=== PATIENT | male | born 1940 | race Caucasian/White ===

== ENCOUNTER 2016-07-07 10:55 | Inpatient (IN) | payer OTHER, MEDICARE ==
[2016-07-07] VITALS (7 sets, daily range): BP systolic 93–104; BP diastolic 46–63; PULSE 72–99; RESP 16–22; O2SAT 95–98
[~2016-07-07] VITALS: Ht 170.2 cm; Wt 78.1 kg
--- NOTE | 2016-07-07 11:14 | ED.REPORT ---
HPI-Dyspnea / Wheezing Date of Service Jul 07, 2016 ED Provider: Eric Roque MD A pleasant 76 year old male with a history of HTN, asthma, and GERD presents to the ER referred from his PCP accompanied by his daughter complaining of lower extremity pain with ambulation for the last two months. He also reports subjective fever yesterday, and persistent dizziness, fatigue, dyspnea with minimal exertion, voice change, and 20lb weight loss over the last year. Patient denies chest pain, lower extremity swelling, and history of AL, CHF, blood clots, or pulmonary disease. He has been on antibiotics for the past two months, currently on Augmentin. Nursing Notes Stated Complaint: RESPIRTORY PROBLEMS-SENT BY DOCTOR Chief Complaint: Respiratory Distress Nursing Notes Reviewed: Yes Allergies: Coded Allergies: No Known Allergies (Unverified , 07/07/16) Scheduled Amoxicillin/Clav K 875-125 mg (Augmentin 875-125 mg) 1 Each Tablet 1 TABLET PO BID x 10 days Aspirin (Aspirin) 81 Mg Tablet 81 MG PO DAILY Budesonide/Formoterol 160-4.5 mcg Inh (Symbicort 160-4.5 mcg Inh) 120 Puff Inhaler 2 PUFF INHALATION BID Fluticasone Propionate (Fluticasone Propionate Nasal) 16 Gm [place].susp 2 SPRAY NS DAILY Lisinopril (Lisinopril) 20 Mg Tablet 20 MG PO HS Multivitamin (Once Daily) 1 Each Tablet 1 EACH PO DAILY Terazosin (Terazosin) 2 Mg Capsule 2 MG PO HS Scheduled PRN Benzonatate (Benzonatate) 200 Mg Capsule 200 MG PO q8 hours PRN PRN For Cough Guaifenesin/Codeine Phosphate (Guaifen-Codeine 100-10 mg/5 ml) 120 Ml Liquid 1- 2 TSP PO HS PRN PRN For Cough General Time Seen by MD: 11:09 Chief Complaint Other (Lower Extremity Pain) Hx Obtained From: Patient, Daughter Arrived By: Walk-in Sudden in Onset?: No Onset Occurred: More than a week ago... (2 months) Symptom Duration: Since onset Associated with: Reports: Diaphoresis, Fever, Denies: Chest pain Pertinent Negative: Pt denies other symptoms Recent Healthcare: Recent doctor visit Similar Sx Previous: No Past Medical History Past Medical History Reports: Asthma, GERD, Hypertension Smoking History Former Smoker Social History Other Social History: Good social support Ambulatory Status Independent Review of Systems Constitutional: Reports: Fatigue, Fever, Malaise, Denies: Chills Ears / Nose / Throat: Reports: Voice change Respiratory: Reports: Dyspnea on exertion, Shortness of breath, Denies: Non-productive cough Cardiovascular: Denies: Chest pain Musculoskeletal: Reports: Extremity pain (Lower, bilateral), Denies: Extremity swelling Skin: Reports Diaphoresis Complete sys rev & neg: except as marked. GI: Denies: Abdominal pain, Nausea, Vomiting Endocrine: Reports: Weight loss (20lbs over the last year) Neurologic: Reports: Dizziness Physical Exam Initial Vital Signs Vital Signs (First) Date Time Temp Pulse Resp B/P Pulse Ox O2 Delivery O2 Flow Rate FiO2 07/07/16 10:58 35.0 99 18 95/54 95 07/07/16 12:36 Room Air Initial VS: Reviewed Head / Eyes: Atraumatic, Normocephalic Abdomen / GI: Soft, Non-tender, No guarding, No rebound, No distention Extremities: Vascular intact, Neuro intact, No swelling, No tenderness Skin: Warm, Dry, No cyanosis Neurologic: Alert, Oriented, Nonfocal General/Constitutional: Awake, Alert, Well developed, Well nourished Neck: Atraumatic, Supple, No meningismus, Full range of motion, No swelling, Non-tender, No masses Respiratory / Chest: Breath sounds NL, Breath sounds = bilat, No respiratory distress, No rales, No rhonchi, No wheezing, No retractions, No stridor Hoarse voice. Cardiovascular: Heart rate NL, Regular rhythm, Heart sounds NL, Peripheral circulation NL Lower Extremity / Pelvis / MS: Inspection NL, Full range of motion, No swelling , Non-tender, No erythema, No deformity, Neurologic intact, Vascular intact, No edema Interpretation & Diagnostics Lab Results Interpretation Result Diagram: 07/07/16 1128 07/07/16 1128 Test 07/07/16 11:28 White Blood Count 14.1th/mm3 (3.8-10.1) Red Blood Count 3.56mil/mm3 (4.40-5.80) Hemoglobin 10.5g/dL (13.8-17.2) Hematocrit 31.9% (41.0-50.0) Mean Corpuscular Volume 89.6fL (81-100) Mean Corpuscular Hemoglobin 29.5pg (27.0-35.0) Mean Corpuscular Hemoglobin Concent 32.9% (32.0-37.0) Red Cell Distribution Width 13.9% (12.3-15.4) Platelet Count 386bil/L (150-400) Neutrophils (%) (Auto) 82.3% (40-74) Lymphocytes (%) (Auto) 10.7% (14-46) Monocytes (%) (Auto) 6.1% (4-12) Eosinophils (%) (Auto) 0.3% (0-5) Basophils (%) (Auto) 0.3% (0-3) Prothrombin Time 11.2sec (8.1-12.5) Prothromb Time International Ratio 1.05ratio D-Dimer 0.7mg/L (<0.50) Sodium Level 128mEq/L (134-144) Potassium Level 5.0mEq/L (3.5-5.2) Chloride Level 92mEq/L (97-108) Carbon Dioxide Level 18mmol/L (18-29) Blood Urea Nitrogen 25mg/dL (8-27) Creatinine 1.52mg/dL (0.76-1.27) Estimat Glomerular Filtration Rate 47mL/min (>59) Glucose Level 441mg/dL (60-99) Lactic Acid Level 1.5mmol/L (0.4-2.0) Calcium Level 8.9mg/dL (8.5-10.1) Total Bilirubin 0.5mg/dL (0.0-1.2) Aspartate Amino Transf (AST/SGOT) 14U/L (0-50) Alanine Aminotransferase (ALT/SGPT) 15U/L (0-44) Alkaline Phosphatase 91U/L (25-160) Troponin T 0.010ug/L (0.0-0.011) Pro-B-Type Natriuretic Peptide 511.1pg/mL (0-486) Total Protein 7.3g/dL (6.4-8.4) Albumin 2.9g/dL (3.4-5.0) ECG Interpretation ECG Interpretation: Sinus rhythm, rate 82 RBBB Time: 12:27 Interpreted by: ED physician X-Ray Chest Interpretation Chest Xray Interpretation: IMPRESSION: Opacification in masslike opacity within the left upper lobe as above. While this could represent a consolidation such as pneumonia, neoplastic mass lesion cannot be excluded. Further evaluation with CT chest is recommended. Dictated by: Elaine Mcgill M.D. on 07/07/2016 at 11:53 Approved by: Elaine Mcgill M.D. on 07/07/2016 at 11:55 View: Portable, 1 view Interpretation / Wet Read by: Interpret - Radiologist CT Chest Interpretation IMPRESSION: 1. No acute pulmonary embolus. 2. 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 Differential considerations include large pneumonia versus neoplasm with resultant postobstructive pneumonia. 3. Mediastinal adenopathy. Although this may be inflammatory/infectious in nature, metastatic disease should also be considered in the differential. These findings were discussed with Dr. Carlos Patel at 1:44 PM on 07/07/16. Dictated by: Kenia Correia M.D. on 07/07/2016 at 13:34 Approved by: Kenia Correia M.D. on 07/07/2016 at 13:45 Study type: CT pulm angiogram Interpretation / Wet Read by: Interpret - Radiologist, Discussed w radiologist Re-Eval/Medical Decision Med Decision/Clinical Course 76-year-old male former smoker presenting with dyspnea on exertion times several months. CT Angio chest shows left upper lobe consolidated mass pneumonia versus malignancy with postobstructive pneumonia. White blood cell count is 13,000. She is 94-95% room air. Lactate is normal. Patient will be admitted for lung mass workup and postobstructive pneumonia. Levaquin given. Admitted to hospitalist. Discussed with oncology and they will follow. Source of Hx: Old records Re-Evaluation/Progress #1: Time of Eval: 14:40 Re-Evaluation/Progress Note: Patient is resting comfortably. Discussed laboratory and imaging results and the need for admission. Patient is amenable to the plan. All other questions addressed. Re-Evaluation/Progress #2: Time of Eval: 15:45 Re-Evaluation/Progress Note: Updated patient's family on the plan of care. Consultation #1: Consulted With: Hospitalist Call Returned at: 14:44 Certified Nursing Assistant: Agrees with eval, Agrees with plan, Accepts admit Note: Consultation #2: Referral / Consult Name: Abhijeet Bauer MD Consulted With: On-call physician (Oncology) Call Returned at: 15:20 Note: Agrees to consult. Counseled Regarding: Diagnosis, Lab results, Need for admission Discharge & Departure Impression: Primary Impression: Lung mass Additional Impression: Pneumonia Disposition: ADMITTED TO HOSPITAL Discharge Condition All VS Reviewed: Yes Condition: Stable Scribe Attestation Portions of this note were transcribed by Joseph Reyes. I, Dr. Roque, personally performed the history, physical exam and medical decision-making; I reviewed and confirmed the accuracy of the information in the transcribed note. Signed by: Rosalie Mcmillan, 07/07/2016 and 15:39 Eric Roque MD Jul 07, 2016 11:14 JOSEPH REYES Jul 07, 2016 11:23
[2016-07-07] MEDS ORDERED: 0.9% Sodium Chloride 500 ML IV ONE (11:26)
[2016-07-07 11:47] LABS: BASOPHILS % (AUTO) 0.3 % (0-3); EOSINOPHILS % (AUTO) 0.3 % (0-5); MONOCYTES % (AUTO) 6.1 % (4-12); Mean Corpuscular Hemoglobin 29.5 pg (27.0-35.0); Mean Corpuscular Volume 89.6 fL (81-100); NEUTROPHILS % (AUTO) 82.3 % (40-74); Platelet Count 386 bil/L (150-400)
--- NOTE | 2016-07-07 11:56 | DRSVH ---
PROCEDURE: X-RAY CHEST ONE VIEW, PORTABLE ([id number]) INDICATIONS: dyspnea TECHNIQUE: One view of the chest was acquired. COMPARISON: None. FINDINGS: Surgical changes and devices: None. Lungs and pleura: There is opacification as well as masslike opacity within the left upper lobe. No p riors are available for comparison. Mediastinum: Mediastinal contours appear normal. Heart size is normal. Bones and chest wall: No suspicious bony lesions. Overlying soft tissues appear unremarkable. IMPRESSION: Opacification in masslike opacity within the left upper lobe as above. While this could r epresent a consolidation such as pneumonia, neoplastic mass lesion cannot be excluded. Further evalua tion with CT chest is recommended. Dictated by: Elaine Mcgill M.D. on 07/07/2016 at 11:53 Approved by: Elaine Mcgill M.D. on 07/07/2016 at 11:55
[2016-07-07 12:11] LABS: D-DIMER 0.7 mg/L (<0.50); INR 1.05 ratio
[2016-07-07 12:19] LABS: TROPONIN T 0.01 ug/L (0.0-0.011)
--- NOTE | 2016-07-07 13:46 | DRSVH ---
PROCEDURE: CT ANGIO CHEST PULMONARY EMBOLISM ([id number]) INDICATIONS: dyspnea elevated ddimer TECHNIQUE: After the administration of intravenous contrast, 2 mm thick sections acquired from the pulmonary api ruben to the posterior costophrenic angles. 3-dimensional maximum intensity projection (MIP) coronal a nd sagittal reformats were then acquired through the thorax. For radiation dose reduction, the follo wing was used: automated exposure control, adjustment of mA and/or kV according to patient size. COMPARISON: [facility], CR, XR CHEST 1VW (PORTABLE), 07/07/2016, 11:28. FINDINGS: Image quality: Excellent. Pulmonary arteries: Pulmonary arteries are normal in size, and demonstrate no intraluminal filling d efects to suggest central pulmonary embolism. Lungs and pleura: There is moderate to severe centrilobular emphysema. A large consolidative mass is present within the right upper lobe. Scattered air bronchograms are present within this mass. Patchy airspace opacities are visualized within the perimeter of this lesion. No pleural effusion or pneumot horax. Mediastinum: Heart size is normal, without pericardial effusion there are multiple shotty mediastina l nodes, some of which meet the pathologic size criteria of 1 cm diameter. A prevascular lymph node m easures 1.8 cm in diameter. Thoracic aorta is normal in caliber and enhancement. Scattered atheromato us calcifications are present within the aortic arch. Esophagus is normal in caliber. There is a sm all hiatal hernia. Bones and chest wall: No suspicious bony lesions. Ribs and thoracic spine appear intact throughout. Thyroid gland is poorly characterized due to streak artifact from the intravenous contrast. Wound. No axillary or supraclavicular adenopathy. Abdomen: Visualized upper abdominal solid organs appear normal in the early arterial phase of enhanc ement. IMPRESSION: 1. No acute pulmonary embolus. 2. 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 Differential considerations include large pneumon ia versus neoplasm with resultant postobstructive pneumonia. 3. Mediastinal adenopathy. Although this may be inflammatory/infectious in nature, metastatic disease should also be considered in the differential. These findings were discussed with Dr. Carlos Patel at 1:44 PM on 07/07/16. Dictated by: Kenia Correia M.D. on 07/07/2016 at 13:34 Approved by: Kenia Correia M.D. on 07/07/2016 at 13:45
[2016-07-07] MEDS ORDERED: 0.9% Sodium Chloride 1,000 ML IV ONE (13:53)
[2016-07-07] MEDS ORDERED: levoFLOXacin Inj 750 MG in IV Premix 1 EACH IV ONE (13:55)
[2016-07-07] MEDS ORDERED: TERA2CAP4 PO (14:58)
[2016-07-07] MEDS ORDERED: LISI-567 PO (14:58)
[2016-07-07] MEDS ORDERED: AMOX-366 PO (14:58)
[2016-07-07] MEDS ORDERED: SYMINH INHALATION (14:58)
[2016-07-07] MEDS ORDERED: FLUT16SP NS (14:58)
[2016-07-07] MEDS ORDERED: BENZ200C44 PO (14:58)
[2016-07-07] MEDS ORDERED: MULT-666 PO (14:58)
[2016-07-07] MEDS ORDERED: ASPI-973 PO (14:58)
[2016-07-07] MEDS ORDERED: GUAI120L30 PO (14:58)
[2016-07-07] MEDS ORDERED: Budesonide-Formot 160-4.5 mCg 6.9 Gm Inhaler INHALATION SCH (15:10)
--- NOTE | 2016-07-07 15:17 | PCM.HPMED ---
Subjective Date of Service Jul 07, 2016 Primary Provider: Admitting Physician: Primary Care Physician: Giovanna River MD Attending Physician: History of Present Illness: Shortness of breath Allergies Coded Allergies: No Known Allergies (Unverified , 07/07/16) Home Medications Amoxicillin, Symbicort, Terazosin, Lisinopril, multivitamin, PMH Asthma, GERD, Hypertension, BPH, COPD? Family History Family history reviewed and is non contributory to the present illness Social History Hx Alcohol Use: No Hx Substance Use: No Smoking Status: Former Smoker Exam Vital Signs Vital Sign - Last Date Time Temp Pulse Resp B/P Pulse Ox O2 Delivery O2 Flow Rate FiO2 07/07/16 12:36 76 22 93/54 98 Room Air 07/07/16 10:58 35.0 Lab and Diagnostics Result Diagram: 07/07/16 1128 07/07/16 1128 X-Rays, CTs and MRIs Chest CTand chest X-ray scan reviewed . Report noted 1. No acute pulmonary embolus. 2. 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 Differential considerations include large pneumonia versus neoplasm with resultant postobstructive pneumonia. 3. Mediastinal adenopathy. Although this may be inflammatory/infectious in nature, metastatic disease should also be considered in the differential. Assessment & Plan 1. Community Acquired Pneumonia/Post obstructive pneumonia 2. Lung mass suspicious for Malignancy 3. Hyponatremia : due to pneumonia 4. Acute Renal Failure 5. Hyperglycemia/ Type II diabetes : new onset . Chronic Medical problems GERD BPH COPD? Hypertension Supplemental oxygen via nasal canula Nebulizer , bronchodilators ( Underlying COPD) Ceftriaxone and Zithromax for Pneumonia . Blood cultures in process. Obtain procalcitonin level Lung mass likely malignancy given history of smoking . Will need biopsy and eventually oncology consult . We will have to treat the pneumonia first, then repeat the chest x-ray or Ct scan and consider Interventional radiology consult for lung biopsy . Start NS at 100 ml/hr for Hyponatremia and acute renal failure . Likely pre- renal azotemia . Blood sugar 400 . No known history of diabetes. Obtain A1c . Sliding scale insulin with coverage. Diabetic diet .PT will need diabetic teaching Home medications reviewed and reconciled ( See EMR) SCD for DVT prophylaxis VTE Prophylaxis: GISSELLE Ledesma Resuscitation Status: CPR: Attempt Resuscitation Time spent 75 minutes Phani Andrew MD Jul 07, 2016 15:17 Phani Andrew MD Jul 07, 2016 15:17
[2016-07-07] MEDS: cefTRIAXone Inj 1,000 MG in Dextrose 5% Minibag Plus 50 ML IV SCH (16:10)
--- NOTE | 2016-07-07 19:18 | NUR ---
Admission Pt to floor at 1735 on hussain, able to transfer self off bed and requested to stand for a few minutes. Report from Maribell in ED. Pt has no c/o pain, VSS, WHITE, A&O x 3. Is having coughing and productive in the AM. Pt on RA, s/l. Pt hungry and wanting to order dinner. Pt oriented to call light and room, urinal given and advised pt to use call light if he wants to get up.
[2016-07-07] MEDS: Fluticasone-Salmeterol 500-50 Inhaler INHALATION SCH (20:14)
[2016-07-07] MEDS: Insulin Human REGular 300 Unit/3 mL Inj SUBQ SCH (23:25)
[2016-07-08 00:36] VITALS: BP 93/60; PULSE 87; RESP 16; O2SAT 98
[2016-07-08] MEDS: Insulin Human REGular 300 Unit/3 mL Inj SUBQ SCH ×4 (02:43→20:51)
[2016-07-08 04:29] VITALS: BP 107/69; PULSE 88; RESP 16; O2SAT 96
--- NOTE | 2016-07-08 06:41 | NUR ---
Cough/IV Pt continues to have non productive, barking cough. Able to get some rest overnight. 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 Pt IV not flushing at start of shift, unable to adjust and save. D/C'd and restarted in right AC. Flushing well, Pt to start IV antibiotics this AM.
[2016-07-08 06:52] LABS: BASOPHILS % (AUTO) 0.2 % (0-3); EOSINOPHILS % (AUTO) 1.2 % (0-5); MONOCYTES % (AUTO) 8.2 % (4-12); Mean Corpuscular Hemoglobin 29.5 pg (27.0-35.0); Mean Corpuscular Volume 88.7 fL (81-100); NEUTROPHILS % (AUTO) 76.6 % (40-74); Platelet Count 411 bil/L (150-400)
[2016-07-08] MEDS: Fluticasone-Salmeterol 500-50 Inhaler INHALATION SCH ×2 (08:04→20:49)
[2016-07-08] MEDS ORDERED: 0.9% Sodium Chloride 250 ML ONE (11:10)
[2016-07-08] MEDS: cefTRIAXone Inj 1,000 MG in Dextrose 5% Minibag Plus 50 ML IV SCH (11:29)
[2016-07-08 11:39] VITALS: BP 95/61; PULSE 97; RESP 18; O2SAT 97
--- NOTE | 2016-07-08 15:08 | NUR ---
Blood sugar Pts A1C came back at 14.4. Educated pt on what this means and adv along with the recs he get from M.D.'s here to f/u with his PCP abut this. His afternoon BG was 436. He is on a low dose regular insulin algorithm. Pt asking if he will be out of here by this weekend. Adv he ask with M.D. when they round. I did review his plan of care per M.Kylah. notes. Care ongoing.
[2016-07-08] MEDS ORDERED: Albuterol-Ipratropium 3 mL Inhalation Solution NEB PRN (16:00)
--- NOTE | 2016-07-08 16:01 | PCM.PNMED ---
Subjective Date of Service Jul 08, 2016 Subjective Patient was seen and examined at bedside today. Patient denies any chest pain, shortness of breath, nausea, vomiting, diarrhea. Exam Vital Signs Vital Sign - Last Date Time Temp Pulse Resp B/P Pulse Ox O2 Delivery O2 Flow Rate FiO2 07/08/16 11:39 36.8 97 18 95/61 97 Room Air Intake and Output 07/07/16 07/07/16 07/08/16 Cumulative From/Thru 15:00 23:00 07:00 07/07/16 10:58 - 07/08/16 06:12 Intake Total 2000 ml 320 ml 100 ml 2420 ml Output Total 500 ml 500 ml Balance 2000 ml 320 ml -400 ml 1920 ml Intake Oral 320 ml 100 ml 420 ml IV Total 2000 ml 2000 ml Output Urine Total 500 ml 500 ml # Voids 1 1 # Bowel Movements 0 0 Exam Physical Exam: GEN: Patient was awake, alert, responding appropriately to questions HEENT: PERRLA, EOMI, Neck soft supple, trachea midline, nomocephalic/atraumatic CV: +S1/S2, RRR, systolic murmur auscultated Respiratory:no wheezes, rales, positive rhonchi GI: +bowel sounds x4, soft, compressible, non TTP EXT: no c/c/e Neuro: CN II-XII grossly intact Psych: mood and affect were appropriate IVs and Medications Medications Reviewed: Medications were reviewed in detail Lab and Diagnostics Result Diagram: 07/08/16 0636 07/08/16 0636 X-Rays, CTs and MRIs Chest CTand chest X-ray scan reviewed . Report noted 1. No acute pulmonary embolus. 2. 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 Differential considerations include large pneumonia versus neoplasm with resultant postobstructive pneumonia. 3. Mediastinal adenopathy. Although this may be inflammatory/infectious in nature, metastatic disease should also be considered in the differential. Assessment & Plan 76-year-old male presents with community-acquired pneumonia Community-acquired pneumonia with leukocytosis -Continue ceftriaxone at the milligrams daily -Continue azithromycin 500 mg daily -White blood cell count improving yesterday 14.1 today 10.1 -Oxygen as needed and maintain oxygen saturations at 90% and above -Blood cultures negative 24 hours Lung mass -Lung mass noted on CT scan currently unable to do a biopsy as the patient has an active infection. Patient will need to follow-up as an outpatient for possible needle biopsy. Once the patient's pneumonia has resolved and the patient will need a follow-up chest x-ray/CT scan to reassess the mass as this could be consolidation from the pneumonia. If the mass is still present and the patient would need a needle guided CT biopsy which would be done once the patient's pneumonia has resolved. New-onset diabetes2 - Blood glucose on admission 400 - Hemoglobin A1c 14.1 -Nutrition education -Start Lantus 10 units daily at bedtime -Metformin 500 mg twice a day Acute kidney injury secondary to dehydration (resolved) -Creatinine on admission 1.5 to currently 0.78 -1 L normal saline bolus on 07/08/2016 -Continue with IV normal saline 100 mL an hour -We will continue to monitor Hyponatremia (resolved) -Sodium on admission 128 -IV fluids one 1 L bolus (07/08/16) -Continue with normal saline at 100 mL an hour -We will continue to monitor COPD -Continue Advair -Dual nebs every 6 when necessary -We will continue to monitor patient for any COPD exacerbations in the setting of this new onset of pneumonia and treat accordingly BPH chronic present on admission currently stable -Continue doxazosin 2 mg by mouth daily History of hypertension -Patient has currently been running hypotensive -With blood pressure 95/61 -Stop patient's home dose of lisinopril -Continue with IV fluids 100 cc an hour normal saline SCD for DVT prophylaxis Disposition: Patient is currently progressing well. Currently managing medications for the patient is new onset of diabetes. We will also continue to monitor the patient's hypertension as he is currently hypotensive. If patient continues to progress positively he may be ready for discharge tomorrow with follow-up for the lung mass as an outpatient. VTE Prophylaxis: GISSELLE Ledesma VTE Mechanical Devices: Intermittant Pneumatic CD Resuscitation Status: CPR: Attempt Resuscitation Time spent Greater than 35 minutes Lizzy Jackson DO Jul 08, 2016 16:01
[2016-07-08 16:23] VITALS: PULSE 75; RESP 20; O2SAT 98
[2016-07-08] MEDS: 0.9% Sodium Chloride 1,000 ML IV SCH (17:33)
--- NOTE | 2016-07-08 19:51 | CCS CONS ---
[facility] [address] [place] [id number] MEDICAL ONCOLOGY NEW PATIENT REPORT PATIENT: MAXX CASANOVA : 1940 MR#: [id number] DATE: 07/07/2016 JOB ID: [id number] DATE: 07/08/2016 REQUESTING PHYSICIAN: Emergency department doctor upon admission. REASON FOR CONSULT: Incidental finding of a mass-like consolidation in the anterior left upper lobe of the lung. HISTORY OF PRESENT ILLNESS: The patient is a 76-year-old gentleman with history of hypertension and GERD who was originally from [place] and moved to [facility]. He has been very active in his life and usually in fairly good health but has been noticing a decline over the past two months with less and less energy and increasing dyspnea on exertion, particularly in the last couple of weeks deteriorating to the point that he had to stop when, for example, climbing the stairs which is very unusual for him. He has been also having some cough. He has been establishing care with Dr. Giovanna Torres as PCP and was seen and sent to the ED. This was yesterday late afternoon. The patient has been noticing also some cold sweats. No documented fever, although he thought that he might have had fever during those sweat episodes. He has lost 20 pounds of weight unintentionally over the past two months and he has noticed also some change in his voice. A CT angio of the chest was performed to rule out PE which was negative for pulmonary embolism yesterday but showed a large mass-like consolidation in the left upper lobe and a few lymph nodes in the mediastinum that were mildly prominent, but there was one particularly enlarged lymph node in the prevascular space measuring 1.8 cm. There was no pleural effusion or pericardial effusion. The main differential diagnosis was pneumonia versus neoplastic process. He did have a leukocytosis but did not have a fever. He has been started on antibiotics for possible community acquired pneumonia with ceftriaxone and azithromycin. REVIEW OF SYSTEMS: Positive for the worsening exertional dyspnea with weight loss and cough. No purulent sputum. No documented fever, although he does have episodes of sweats. He denies any neurological symptoms and no GI problems. PAST MEDICAL HISTORY: Hypertension, acid reflux and history of asthma. HOME MEDICATION: 1. Symbicort inhaler. 2. Lisinopril 20 mg. 3. Terazosin 2 mg. 4. Baby aspirin. 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 The patient has a remote history of smoking for about five years when he was 15 years old up to age 20. No history of alcoholism. He is , has four children. They live in [place]. Two of his children are physicians. He lives in [facility] with his . LABS: On admission showed hyponatremia with a sodium of 128, abnormal creatinine of 1.52, normal LFTs. His sodium has improved with 135, creatinine normalized to 0.78 with hydration. His hemoglobin A1c is excessively high with 14 and his glucose in the ED was 441. Albumin low with 2.9. Procalcitonin was only minimally elevated, insignificant at 0.09. CBC shows a white count of 10.1 today, hemoglobin 9, platelets of 411. EXAMINATION: On exam, he has not had any fever since his presentation here, blood pressure around 100/60s, O2 sat 97% on room air, heart rate in the 80s. Lungs show no wheezing or crackles. Heart regular. Abdomen is soft. Extremities show no edema. No palpable adenopathy. Neurologically intact. Very interactive and pleasant gentleman. ASSESSMENT AND PLAN: A 76-year-old gentleman with no meaningful history of smoking (between age 15 and 20) who usually has been in very good functional status but has been declining over the past couple of months with increasing fatigue, occasional sweats and progressive shortness of breath on exertion which has lately become severe enough that he had to be sent to the emergency department. He has also lost 20 pounds of weight. Yesterday in the ED, he had a CT angio to rule out PE which was negative but incidentally showed a large surface of a mass-like consolidation in the anterior aspect of the left upper lobe with central aspect pulling towards the hilum. There is also one enlarged prevascular lymph node of 1.8 cm. No effusions. The main differential diagnosis is an infectious process/pneumonia versus a malignant process. There are certain findings that makes me concerned about malignancy, particularly the gradual insidious onset of symptoms over the past two months, a 20 pound weight loss and the changes in his worries. Therefore, I believe that he should be worked up for a potential malignancy as this is being treated for possible pneumonia at the same time. Percutaneous biopsy of that area given the large consolidation can be challenging as it can come back nonspecific with inflammatory cells and there might be a post obstructive pneumonia coexisting. Therefore, I would recommend to obtain a pulmonology consultation for consideration of bronchoscopy and, if possible, transbronchial biopsy if accessibility is there. His procalcitonin is also not significantly elevate, speaking against a serious bacterial infection. In addition, he is now found to have diabetes which is a new diagnosis. If Pulmonology recommends against a bronchoscopy, then a course of antibiotics can be tried and patient reimaged and residual remaining abnormality could be then externally biopsied as an alternative. But, again, given the above-mentioned scenario, I think evaluation by Pulmonology would be helpful.
[2016-07-08 19:58] VITALS: BP 99/65; PULSE 86; RESP 18; O2SAT 96
[2016-07-08] MEDS ORDERED: Insulin GLARgine 100 Unit/mL Syringe SUBQ SCH (21:00)
[2016-07-09] MEDS: 0.9% Sodium Chloride 1,000 ML IV SCH ×2 (03:06→13:26)
[2016-07-09] MEDS: Insulin Human REGular 300 Unit/3 mL Inj SUBQ SCH ×2 (03:06→08:14)
--- NOTE | 2016-07-09 04:28 | NUR ---
Cough Pt.'s cough increased during night. Pt. not able to get enough adequate sleep. Katie GONZALEZ paged who ordered Benzoate PO for pt's cough. Seems effective, pt. able to sleep comfortably after medication given.
[2016-07-09 04:32] VITALS: BP 100/66; PULSE 78; RESP 18; O2SAT 95
[2016-07-09 07:35] LABS: BASOPHILS % (AUTO) 0.2 % (0-3); EOSINOPHILS % (AUTO) 2.5 % (0-5); Mean Corpuscular Volume 89.6 fL (81-100); Platelet Count 375 bil/L (150-400)
[2016-07-09] MEDS: Fluticasone-Salmeterol 500-50 Inhaler INHALATION SCH ×2 (08:13→20:55)
[2016-07-09] MEDS: cefTRIAXone Inj 1,000 MG in Dextrose 5% Minibag Plus 50 ML IV SCH (08:14)
[2016-07-09] MEDS ORDERED: Insulin LISPRO Low-Dose Scale SUBQ PRN (12:30)
[2016-07-09] MEDS: Insulin LISPRO Low-Dose Scale SUBQ SCH ×3 (13:26→20:58)
--- NOTE | 2016-07-09 13:49 | NUR ---
Social Work- Initial Assessment Data: See Initial Assessment. Pt is a 76 year old male admitted 07/07/16 for lung mass per H&P. Pt's insurance is [employer] and [employer]. Pt's PCP is Giovanna Schumacher MD. SW met with pt at bedside regarding discharge plan, SW role explained. Pt alert and oriented x3. Pt resides in [place] with his where he remains independent with his ADLs. Pt uses no DME and drives. Pt has no HH or SNF history. Pt has no LTC insurance or VA benefits. SW spoke with pt regarding DPOA, pt declined information at this time. Pt discussed in rounds, MD requested PURCHASING AGENT speak with pt regarding HH collar pointer education. SW explained recommendation to pt. 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 Pt to discharge home with to transport via POV. No anticipated discharge needs. SW will continue to follow if needs arise. Assessment: Pt [place] independent [place] base. Plan: Pt to discharge home with to transport via POV. No anticipated discharge needs. SW will continue to follow if needs arise. INGE Moreno Addendum: 07/09/16 at 1353 by BLADE SINGH Amended: Links added.
[2016-07-09 14:29] VITALS: BP 134/68; PULSE 74; RESP 19; O2SAT 97
[2016-07-09 14:30] VITALS: PULSE 74; RESP 18; O2SAT 97
--- NOTE | 2016-07-09 15:03 | PCM.PNMED ---
Subjective Date of Service Jul 09, 2016 Subjective Patient was seen and examined at bedside today. Patient denies any chest pain, shortness of breath, nausea, vomiting, diarrhea. Patient only complains of cough at this point; however the patient states that after receiving Tessalon Perles that seems to help relieve his cough. Exam Vital Signs Vital Sign - Last Date Time Temp Pulse Resp B/P Pulse Ox O2 Delivery O2 Flow Rate FiO2 07/09/16 14:30 74 18 97 Room Air 07/09/16 14:29 36.4 134/68 Intake and Output 07/08/16 07/08/16 07/09/16 Cumulative From/Thru 15:00 23:00 07:00 07/07/16 10:58 - 07/09/16 06:07 Intake Total 809 ml 1428 ml 4657 ml Output Total 400 ml 900 ml Balance 809 ml 1028 ml 3757 ml Intake Oral 640 ml 300 ml 1360 ml IV Total 169 ml 1128 ml 3297 ml Output Urine Total 400 ml 900 ml # Voids 2 1 4 # Bowel Movements 0 0 Exam Physical Exam: GEN: Patient was awake, alert, responding appropriately to questions HEENT: PERRLA, EOMI, Neck soft supple, trachea midline, nomocephalic/atraumatic CV: +S1/S2, RRR, systolic murmur auscultated Respiratory: Coarse breath sounds with mild rhonchi, no wheezes, rales GI: +bowel sounds x4, soft, compressible, non TTP EXT: no c/c/e Neuro: CN II-XII grossly intact Psych: mood and affect were appropriate IVs and Medications Medications Reviewed: Medications were reviewed in detail Lab and Diagnostics Result Diagram: 07/09/1607 07/09/16706 X-Rays, CTs and MRIs Chest CTand chest X-ray scan reviewed . Report noted 1. No acute pulmonary embolus. 2. 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 Differential considerations include large pneumonia versus neoplasm with resultant postobstructive pneumonia. 3. Mediastinal adenopathy. Although this may be inflammatory/infectious in nature, metastatic disease should also be considered in the differential. Assessment & Plan 76-year-old male presents with community-acquired pneumonia Community-acquired pneumonia with leukocytosis -Continue ceftriaxone at the milligrams daily -Continue azithromycin 500 mg daily -White blood cell count improving yesterday 10.1 today 8.5 -Oxygen as needed and maintain oxygen saturations at 90% and above -Blood cultures negative 48 hours Lung mass -Lung mass noted on CT scan currently unable to do a biopsy as the patient has an active infection. Patient will need to follow-up as an outpatient for possible needle biopsy. Once the patient's pneumonia has resolved and the patient will need a follow-up chest x-ray/CT scan to reassess the mass as this could be consolidation from the pneumonia. If the mass is still present and the patient would need a needle guided CT biopsy which would be done once the patient's pneumonia has resolved. New-onset diabetes2 - Blood glucose on admission 400 today's morning blood glucoses 180 - Hemoglobin A1c 14.1 -Nutrition education -Increase Lantus 20 units daily at bedtime -Metformin 500 mg twice a day Acute kidney injury secondary to dehydration (resolved) -Creatinine on admission 1.5 to currently 0.78 -1 L normal saline bolus on 07/08/2016 -Continue with IV normal saline 100 mL an hour -We will continue to monitor Hyponatremia (resolved) -Sodium on admission 128 -IV fluids one 1 L bolus (07/08/16) -Discontinue Continue with normal saline at 100 mL an hour -We will continue to monitor COPD -Continue Advair -Dual nebs every 6 when necessary -We will continue to monitor patient for any COPD exacerbations in the setting of this new onset of pneumonia and treat accordingly BPH chronic present on admission currently stable -Continue doxazosin 2 mg by mouth daily History of hypertension -Patient has currently been running hypotensive potentially secondary to the doxazosin -With blood pressure 100/66 this morning currently it is 134/68 -Continue to hold patient's home dose of lisinopril -Discontinue Continue with IV fluids 100 cc an hour normal saline SCD for DVT prophylaxis Disposition: Patient is currently progressing well. We will continue to change some of the patient's new medication for diabetes. The patient seems to be progressing very well and will most likely be discharged home tomorrow. It has been explained extensively to the patient that it is important for him to follow -up in regards to this lung mass. He understands that we cannot do anything about this at this time because of the infection but once his infection clears she should follow-up with a CT scan and then later on potentially for a biopsy if the mass is still present on CT. VTE Prophylaxis: GISSELLE Ledesma VTE Mechanical Devices: Intermittant Pneumatic CD Resuscitation Status: CPR: Attempt Resuscitation Time spent Greater than 35 minutes Lizzy Jackson DO Jul 09, 2016 15:03
--- NOTE | 2016-07-09 19:20 | NUR ---
BG Pt with elevated BG. Despite poor appetite d/t not liking the hospital food. BG elevated up to 246 at lunchtime. Coverage given. For dinner, pt had bring in food. Unable to check BG prior to pt eating. Metformin given. NOC RN to check HS BG and give insulin for coverage d/t inaccurate readings. NOC RN made aware. Care continues.
[2016-07-09 19:46] VITALS: BP 122/78; PULSE 79; RESP 17; O2SAT 97
[2016-07-09] MEDS ORDERED: Insulin GLARgine 100 Unit/mL Syringe SUBQ SCH (21:00)
--- NOTE | 2016-07-10 04:02 | NUR ---
Cough/ Pt. teaching Pt. given tessolon pearles for cough. Pt. went to sleep afterwards. This RN also gave some additional pt. teaching about insulin, blood sugar, hypo/hyperglycemia. Pt. verbalized understanding.
[2016-07-10 06:04] VITALS: BP 114/76; PULSE 86; RESP 16; O2SAT 96
[2016-07-10 07:23] LABS: Mean Corpuscular Hemoglobin 29.1 pg (27.0-35.0); Mean Corpuscular Volume 89.7 fL (81-100)
[2016-07-10] MEDS: Insulin LISPRO Low-Dose Scale SUBQ SCH ×2 (08:00→14:11)
[2016-07-10] MEDS: cefTRIAXone Inj 1,000 MG in Dextrose 5% Minibag Plus 50 ML IV SCH (08:59)
[2016-07-10] MEDS: Fluticasone-Salmeterol 500-50 Inhaler INHALATION SCH (08:59)
--- NOTE | 2016-07-10 10:26 | NUR ---
Social Work- Readiness for Discharge Data: EMR reviewed. Pt is on day 3 of hospitalization for lung mass per H&P. Pt to follow up with diabetes education in an outpt setting. Pt declined HH services. Pt to discharge home with to transport via POV. No anticipated discharge needs. SW will continue to follow if needs arise. Assessment: [place]. Plan: Pt to discharge home with to transport via POV. No anticipated discharge needs. SW will continue to follow if needs arise. Jovita Atkins MSW
--- NOTE | 2016-07-10 11:15 | PCM.DIMED ---
Discharge Instructions Date of Service Jul 10, 2016 Dates of Hospitalization Jul 07, 2016 at 16:09 Discharge Diagnosis Discharge Diagnosis Community-acquired pneumonia with leukocytosis Lung mass New-onset diabetes2 Acute kidney injury secondary to dehydration (resolved) Hyponatremia (resolved) COPD BPH chronic present on admission currently stable History of hypertension Medication Instructions Please follow the directions of all medications Please DO NOT take your lisinopril. This medication is no longer needed as your blood pressure has been well controlled. Please follow you with your primary care physician for further monitoring and management of your blood pressure Diet Heart Healthy, Diabetic Activity No restrictions (gradually return to your normal activities of daily living) Call your provider Fever or Chills, Shortness of breath, Bleeding, Chest pain, Vomitting, Excessive diarrhea, Weakness (unilateral) Patient Instructions Follow-up plan Please follow up with your primary care physician as you will need a repeat CT scan of your chest. Once your pneumonia clears and the CT scan still shows a lung mass you will need to have this biopsied for further evaluation to rule out cancer. Please continue to follow-up with the diabetes education classes that have already been scheduled Follow-up Provider: Giovanna River MD Follow-up with PCP in: 2 weeks Lizzy Jackson DO Jul 10, 2016 09:30
[2016-07-10] MEDS ORDERED: ZIT250 PO (11:22)
[2016-07-10] MEDS ORDERED: INSU100V7 SUBQ (11:22)
[2016-07-10] MEDS ORDERED: [UNRECOGNIZED DRUG - CODE] MC (11:22)
[2016-07-10] MEDS ORDERED: BENZ100C8 PO (11:22)
[2016-07-10] MEDS ORDERED: METF500T PO (11:22)
[2016-07-10] MEDS ORDERED: BLOO-204 MC (11:22)
[2016-07-10] MEDS ORDERED: [UNRECOGNIZED DRUG - CODE] MC (11:22)
[2016-07-10] MEDS ORDERED: INSLIS SUBQ (11:22)
--- NOTE | 2016-07-10 11:29 | PCM.DC.MED ---
Discharge Summary Date of Service Jul 10, 2016 Dates of Hospitalization Date of Hospital Admission Jul 07, 2016 at 16:09 Date of Discharge: Jul 10, 2016 Providers: Admitting Physician: Phani Andrew MD Primary Care Physician: Giovanna River MD Attending Physician: Phani Andrew MD Diagnosis at Time of Discharge Diagnosis at Time of Discharge Community-acquired pneumonia with leukocytosis Lung mass New-onset diabetes2 Acute kidney injury secondary to dehydration (resolved) Hyponatremia (resolved) COPD BPH chronic present on admission currently stable History of hypertension Procedures XRay, CTs & MRIs Chest CTand chest X-ray scan reviewed . Report noted 1. No acute pulmonary embolus. 2. 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 Differential considerations include large pneumonia versus neoplasm with resultant postobstructive pneumonia. 3. Mediastinal adenopathy. Although this may be inflammatory/infectious in nature, metastatic disease should also be considered in the differential. Brief History Shortness of breath Hospital Course 76-year-old male presents with community-acquired pneumonia The patient presented to the hospital with community-acquired pneumonia and leukocytosis. The patient was treated with IV ceftriaxone and by mouth azithromycin and the patient responded well. The patient had a CT scan while here and during the CT scan it was noted that the patient may have a lung mass. It was explained to the patient that he needed to finish his course of antibiotics and once his pneumonia had been resolved then the patient should follow-up as an outpatient for follow-up CT scan. The CT scan will show that the pneumonia is resolved however will also show if the mass is still present or if it was consolidation from the pneumonia. If the mass is still present it is recommended that the patient had a needle biopsy of this particular mass. The patient stated that he understood and will follow up with his primary care provider. The patient also was diagnosed with a new onset of diabetes. The patient arrived with a blood glucose of 400 and was found to have a hemoglobin A1c of 14.1. The patient was immediately started on Lantus, sliding scale, and metformin. The patient seems to be responding well as his morning glucose today is 124. The patient is aware that he has diabetes he has also had nutritional education from the dietitian. The patient states that he has already scheduled some diabetes classes as an outpatient near his home. The patient was given a prescription for metformin 500 mg twice a day, Lantus 20 units daily at bedtime, insulin sliding scale. The patient was also prescribed test strips, and Accu-Chek machine, and needles. The patient should follow-up with his outpatient primary care provider who may be able to control his blood sugar which is oral medications and Lantus. The patient while admitted did have acute kidney injury most likely secondary to dehydration which resolved, hyponatremia which resolved after the dehydration was managed. The patient has a history of hypertension and was on lisinopril 20 mg daily however the patient has done well and his blood pressures have been adequately controlled. The patient was advised to stop his lisinopril and to take only the doxazosin and this seems to be controlling his blood pressure. The patient was discharged home in stable condition Hospital plan while admitted below:: Community-acquired pneumonia with leukocytosis -Continue ceftriaxone at the milligrams daily -Continue azithromycin 500 mg daily -White blood cell count improving yesterday 10.1 today 8.5 -Oxygen as needed and maintain oxygen saturations at 90% and above -Blood cultures negative 48 hours Lung mass -Lung mass noted on CT scan currently unable to do a biopsy as the patient has an active infection. Patient will need to follow-up as an outpatient for possible needle biopsy. Once the patient's pneumonia has resolved and the patient will need a follow-up chest x-ray/CT scan to reassess the mass as this could be consolidation from the pneumonia. If the mass is still present and the patient would need a needle guided CT biopsy which would be done once the patient's pneumonia has resolved. New-onset diabetes2 - Blood glucose on admission 400 today's morning blood glucoses 180 - Hemoglobin A1c 14.1 -Nutrition education -Increase Lantus 20 units daily at bedtime -Metformin 500 mg twice a day Acute kidney injury secondary to dehydration (resolved) -Creatinine on admission 1.5 to currently 0.78 -1 L normal saline bolus on 07/08/2016 -Continue with IV normal saline 100 mL an hour -We will continue to monitor Hyponatremia (resolved) -Sodium on admission 128 -IV fluids one 1 L bolus (07/08/16) -Discontinue Continue with normal saline at 100 mL an hour -We will continue to monitor COPD -Continue Advair -Dual nebs every 6 when necessary -We will continue to monitor patient for any COPD exacerbations in the setting of this new onset of pneumonia and treat accordingly BPH chronic present on admission currently stable -Continue doxazosin 2 mg by mouth daily History of hypertension -Patient has currently been running hypotensive potentially secondary to the doxazosin -With blood pressure 100/66 this morning currently it is 134/68 -Continue to hold patient's home dose of lisinopril -Discontinue Continue with IV fluids 100 cc an hour normal saline SCD for DVT prophylaxis Exam Vital Signs (Last) Date Time Temp Pulse Resp B/P Pulse Ox O2 Delivery O2 Flow Rate FiO2 07/10/16 06:04 36.8 86 16 114/76 96 Room Air Exam Physical Exam: GEN: Patient was awake, alert, responding appropriately to questions HEENT: PERRLA, EOMI, Neck soft supple, trachea midline, nomocephalic/atraumatic CV: +S1/S2, RRR, systolic murmur auscultated Respiratory: CTAB, no wheezes, rales, rhonchi GI: +bowel sounds x4, soft, compressible, non TTP EXT: no c/c/e Neuro: CN II-XII grossly intact Psych: mood and affect were appropriate Test 07/07/16 11:28 07/09/16 07:07 07/10/16 06:40 Prothrombin Time 11.2sec (8.1-12.5) Prothromb Time International Ratio 1.05ratio D-Dimer 0.7mg/L (<0.50) Hemoglobin A1c 14.1% (4.8-5.6) Troponin T 0.010ug/L (0.0-0.011) Pro-B-Type Natriuretic Peptide 511.1pg/mL (0-486) Neutrophils (%) (Auto) 74.0% (40-74) Lymphocytes (%) (Auto) 15.1% (14-46) Monocytes (%) (Auto) 8.0% (4-12) Eosinophils (%) (Auto) 2.5% (0-5) Basophils (%) (Auto) 0.2% (0-3) Lactic Acid Level 0.7mmol/L (0.4-2.0) Procalcitonin 0.08ng/mL (0.00-0.08) White Blood Count 8.0th/mm3 (3.8-10.1) Red Blood Count 3.40mil/mm3 (4.40-5.80) Hemoglobin 9.9g/dL (13.8-17.2) Hematocrit 30.5% (41.0-50.0) Mean Corpuscular Volume 89.7fL (81-100) Mean Corpuscular Hemoglobin 29.1pg (27.0-35.0) Mean Corpuscular Hemoglobin Concent 32.5% (32.0-37.0) Red Cell Distribution Width 13.7% (12.3-15.4) Platelet Count 367bil/L (150-400) Sodium Level 136mEq/L (134-144) Potassium Level 3.9mEq/L (3.5-5.2) Chloride Level 101mEq/L (97-108) Carbon Dioxide Level 22mmol/L (18-29) Blood Urea Nitrogen 13mg/dL (8-27) Creatinine 0.66mg/dL (0.76-1.27) Estimat Glomerular Filtration Rate 124mL/min (>59) Glucose Level 124mg/dL (60-99) Calcium Level 8.4mg/dL (8.5-10.1) Total Bilirubin 0.2mg/dL (0.0-1.2) Aspartate Amino Transf (AST/SGOT) 19U/L (0-50) Alanine Aminotransferase (ALT/SGPT) 20U/L (0-44) Alkaline Phosphatase 82U/L (25-160) Total Protein 6.2g/dL (6.4-8.4) Albumin 2.7g/dL (3.4-5.0) Discharge Medications Discharge Medications Aspirin (Aspirin) 81 Mg Tablet 81 MG PO DAILY (Reported) Azithromycin (Zithromax) 250 Mg Tablet 500 MG PO DAILY Prescribed by: CALLIE SALDIVAR DO Budesonide/Formoterol 160-4.5 mcg Inh (Symbicort 160-4.5 mcg Inh) 120 Puff Inhaler 2 PUFF INHALATION BID (Reported) Fluticasone Propionate (Fluticasone Propionate Nasal) 16 Gm [place].susp 2 SPRAY NS DAILY (Reported) Insulin Glargine (Lantus U100 Insulin Vial) 100 Unit/Ml Vial 20 UNIT SUBQ HS Prescribed by: CALLIE SALDIVAR DO Insulin Human Lispro (HumaLOG U100 Insulin Vial) 100 Unit/Ml Unit 0 UNIT SUBQ WMHS Check blood sugars before meals and at bedtime. Use correction factor only before meals. Blood Sugar Lispro Correction: <151, 0 units; 151-175, 1 unit; 176-200, 2 units; 201-225, 3 units; 226-250, 4 units; 251-275, 5 units; 276-300 , 6 units; 301-325, 7 units; 326-350, 8 units; 351-375, 9 units; 376-400, 10 units; >400, 12 units. Prescribed by: CALLIE SALDIVAR DO Metformin (Glucophage) 500 Mg Tablet 500 MG PO BIDWM Prescribed by: CALLIE SALDIVAR DO Multivitamin (Once Daily) 1 Each Tablet 1 EACH PO DAILY (Reported) Terazosin (Terazosin) 2 Mg Capsule 2 MG PO HS (Reported) As needed Benzonatate (Benzonatate) 100 Mg Capsule 100 MG PO TID PRN PRN For Cough Prescribed by: CALLIE SALDIVAR DO Durable Medical Equipment Blood-Glucose Meter, Drum-Type (Accu-Chek) 1 Each Kit 1 EACH [facility] (DME) Prescribed by: CALLIE SALDIVAR DO Lancets (Blood Lancets) 30 Gauge Each 1 EACH [facility] (DME) Prescribed by: CALLIE SALDIVAR DO [place], Disposable ([place]) 1 Each Dis.needle 1 EACH [facility] (DME) Prescribed by: CALLIE SALDIVAR DO Additional med instructions Please follow the directions of all medications Please DO NOT take your lisinopril. This medication is no longer needed as your blood pressure has been well controlled. Please follow you with your primary care physician for further monitoring and management of your blood pressure Followup Plan Follow-up plan Please follow up with your primary care physician as you will need a repeat CT scan of your chest. Once your pneumonia clears and the CT scan still shows a lung mass you will need to have this biopsied for further evaluation to rule out cancer. Please continue to follow-up with the diabetes education classes that have already been scheduled Discharge Diet: Heart Healthy, Diabetic Discharge Activity: No restrictions (gradually return to your normal activities of daily living) Patient Instructions The patient should follow-up with his primary care physician for an outpatient CT scan once the pneumonia resolves. A lung mass was found and this needs further workup. The patient was instructed to stop taking his lisinopril. Follow-up Provider: Giovanna River MD Follow-up with PCP in: 2 weeks Time spent Greater than 35 minutes copies to: Giovanna River MD, Precious L DO Jul 10, 2016 11:29
--- NOTE | 2016-07-10 12:07 | NUR ---
Social Work- Discharge Data: EMR reviewed. Pt is on day 3 of hospitalization for lung mass per H&P. Pt to discharge today. Pt to follow up with diabetes education in an outpt setting. Pt declined services. Pt to discharge home with to transport via POV. No discharge needs. Assessment: [place]. Plan: Pt to discharge home with to transport via POV. No discharge needs. INGE Moreno
--- NOTE | 2016-07-10 15:37 | NUR ---
Discharge Pt discharged to home with at 1440. A&OX3, WHITE, VSS, No c/o pain, IV dcd intact, Hard copy scripts provided to pt - faxed to pt pref pharmacy, Pt able to demonstrate checking own BG and administering insulin to self, Care Notes and instructions provided on dc dx, new medications, and s/sx to seek medical attention for. Additional information provided re: new dx DM from Up To Date and CareNotes. No unanswered questions/concerns. All personal belongings in hand. Pt and aware of f/u plan - walked off unit together to vehicle.
--- NOTE | 2016-07-13 12:58 | NUR ---
Diabetic Discharge follow up phone call: Patient stated that he has all of his needed medications including his insulins. He is checking his blood sugar before meals. It was 131 this morning and 283 at lunch time. Discussed normal blood sugar ranges and to notify his physician if his blood sugar is greater than 250 for more than 2 days. Stated that he feels comfortable is insulin administration and has no questions at this time. He has an appointment with his primary care doctor on 07/16/16.
[2016-07-29] MEDS ORDERED: VIT B COMPLEX PO (10:03)
[2016-07-29] MEDS ORDERED: CHOL10008 PO (10:03)
[2016-07-29] MEDS ORDERED: KRIL1CAP PO (10:05)
== END 2016-07-10 14:45 | disposition home or self-care (01) | DRG 194 ==
LOC: SED 10:55 → OSC 16:09
PROVIDERS: ADMIT Internal Medicine; ATTEND Internal Medicine
DX: J18.9 Pneumonia, unspecified organism (principal); E87.1 Hypo-osmolality and hyponatremia; N17.9 Acute kidney failure, unspecified; R91.8 Other nonspecific abnormal finding of lung field; Z87.891 Personal history of nicotine dependence; Z79.82 Long term (current) use of aspirin; E11.65 Type 2 diabetes mellitus with hyperglycemia; N40.0 Benign prostatic hyperplasia without lower urinary tract symptoms; R63.4 Abnormal weight loss; J44.9 Chronic obstructive pulmonary disease, unspecified; D72.829 Elevated white blood cell count, unspecified